=== PATIENT | female | born 1950 | race Caucasian/White ===

== ENCOUNTER 2017-01-25 11:21 | Emergency (ER) | payer OTHER ==
[~2017-01-25] VITALS: Ht 165.1 cm; Wt 78.5 kg
[~2017-01-25 11:21] MED LIST: ASPIRIN EC81 M1 PO; CALCIUM 600 +1 EAC1 PO; CLARITIN10 M2 PO; CRANBERRY400 MG PO; FISHOIL PO; GLUCOPHAGE XR500 MG PO; HAIR, SKIN & N1 EAC1 PO; IRON PO; L-LYSINE1000 M1 PO; L-LYSINE500 M1 PO; LEXAPRO 10 MG T10 MG PO; LIPITOR40 MG PO; LUTEIN10 MG PO; NORCO 5-325 TA1 EACH PO; PERCOCET PO; PREMARIN VAG; PREMARIN0.3 MG PO; THERA-M CAPLET1 EACH PO; TRICOR145 MG PO; TRIPLE FLEX PO; VERAPAMIL ER120 MG PO; VITAMIN A10000 UNI3 PO; VITAMIN B-12500 MCG PO; VITAMIN C + RO500 MG PO; VITAMIN D1000 UNI1 PO; VITAMIN E400 UNIT PO; ZINC CHELATE50 MG PO
[2017-01-25] MEDS ORDERED: RESTASIS1 EACH OPHTHALMIC (11:36)
[2017-01-25] MEDS ORDERED: DOXYCYCLINE 10100 MG PO (11:37)
[2017-01-25] MEDS ORDERED: COZAAR 50 MG TA50 M2 PO (11:37)
[2017-01-25] MEDS ORDERED: OMEPRAZOLE 20 M20 M1 PO (11:38)
[2017-01-25] MEDS ORDERED: IRON325 PO (11:39)
[2017-01-25] MEDS ORDERED: TRIPLE FLEX CA1 EACH PO (11:39)
[2017-01-25] MEDS ORDERED: ZYRTEC10 M5 PO (11:40)
[2017-01-25] MEDS ORDERED: BENADRYL25 MG PO (11:41)
[2017-01-25] MEDS ORDERED: KLOR-CON 1010 MEQ PO (11:42)
[2017-01-25] MEDS ORDERED: TURMERIC500 M2 PO (11:42)
[2017-01-25 12:09] LABS: ABSOLUTE NEUTROPHILS 8.6 thou/uL (1.4-8.2); BASOPHILS 0.7 % (0.0-2.0); EOSINOPHILS 0.9 % (0.0-3.0); HEMATOCRIT 40.5 % (37.0-47.0); HEMOGLOBIN 13.8 gm/dL (12.0-15.0); LYMPHOCYTES 13.4 % (24.0-44.0); MCH 29.8 pg (26.0-34.0); MCHC 34.1 g/dL (28.0-37.0); MCV 87.3 fL (80.0-100.0); PLATELET COUNT 293 thou/uL (150-400); RBC 4.64 mil/uL (4.20-5.00); RDW 13.8 % (10.5-14.5); WBC 11.6 thou/uL (4.0-11.0)
[2017-01-25 12:10] LABS: MANUAL DIFF NO
[2017-01-25 12:15] LABS: CALCIUM 9.7 mg/dL (8.5-10.1); CREATININE 0.9 mg/dL (0.6-1.0); POTASSIUM 4.3 mmol/L (3.5-5.1)
[2017-01-25 12:21] LABS: ALBUMIN 4.2 g/dL (3.4-5.0); TOTAL PROTEIN 7.5 g/dL (6.4-8.2)
[2017-01-25 13:03] LABS: URINE BILIRUBIN NEGATIVE (Negative); URINE BLOOD 2+ (Negative); URINE COLOR YELLOW; URINE GLUCOSE-RANDOM* NEGATIVE (Negative); URINE KETONES NEGATIVE (Negative); URINE PROTEIN (DIPSTICK) TRACE (Negative); URINE SPECIFIC GRAVITY <= 1.005 (1.003-1.035); URINE UROBILINOGEN 0.2 E.U./dl (0.2-1.0)
[2017-01-25 13:04] LABS: URINE LEUKOCYTES-REFLEX 3+ (Negative)
[2017-01-25 13:06] LABS: SQUAMOUS 0-3 Few /LPF (0-3); URINE WBC-REFLEX >25 Many /HPF (0-5)
[2017-01-25 13:07] LABS: CASTS None Seen /LPF (None Seen); CRYSTALS None Seen /LPF (None Seen); URINE RBC 3-10 Few /HPF (0-2)
[2017-01-25] MEDS ORDERED: KEFLEX500 MG PO (13:18)
[2017-01-25 14:01] VITALS: BP 144/63
== END 2017-01-25 14:02 | disposition home or self-care (01) ==
LOC: ER 11:21
PROVIDERS: Physician Assistant
DX: N39.0 Urinary tract infection, site not specified (principal); Z90.710 Acquired absence of both cervix and uterus; Z98.890 Other specified postprocedural states; Z88.1 Allergy status to other antibiotic agents; Z88.2 Allergy status to sulfonamides; Z91.018 Allergy to other foods; Z88.8 Allergy status to other drugs, medicaments and biological substances

== ENCOUNTER → 2017-04-07 | Outpatient (CLI) | payer OTHER ==
[~2017-04-07] MED LIST changes: +AUGMENTIN 875-1 EACH PO; +BENADRYL25 MG PO; +COZAAR 50 MG TA50 M2 PO; +DOXYCYCLINE 10100 MG PO; +IRON325 PO; +KEFLEX500 MG PO; +KLOR-CON 1010 MEQ PO; +OMEPRAZOLE 20 M20 M1 PO; +RESTASIS1 EACH OPHTHALMIC; +TRIPLE FLEX CA1 EACH PO; +TURMERIC500 M2 PO; +ZYRTEC10 M5 PO
== END ==
LOC: RAD 02:01
DX: Z12.31 Encounter for screening mammogram for malignant neoplasm of breast (principal)

== ENCOUNTER → 2017-08-28 | Outpatient (CLI) | payer OTHER | LOC: MRI 06:18 | DX: G93.0 Cerebral cysts (principal) ==

== ENCOUNTER → 2018-04-08 | Outpatient (CLI) | payer OTHER | LOC: RAD 01:13 | DX: Z12.31 Encounter for screening mammogram for malignant neoplasm of breast (principal) ==

== ENCOUNTER 2018-05-19 09:21 | Emergency (ER) | payer OTHER ==
[~2018-05-19] VITALS: Ht 165.1 cm; Wt 78.5 kg
[2018-05-19 09:55] LABS: ABSOLUTE NEUTROPHILS 7.6 thou/uL (1.4-8.2); BASOPHILS 0.6 % (0.0-2.0); EOSINOPHILS 1.9 % (0.0-3.0); HEMATOCRIT 41.2 % (37.0-47.0); HEMOGLOBIN 13.9 gm/dL (12.0-15.0); LYMPHOCYTES 11.4 % (24.0-44.0); MCH 29.3 pg (26.0-34.0); MCHC 33.7 g/dL (28.0-37.0); MCV 86.8 fL (80.0-100.0); MONOCYTES 9.2 % (1.0-8.0); PLATELET COUNT 271 thou/uL (150-400); POLYS 76.9 % (36.0-66.0); RBC 4.75 mil/uL (4.20-5.00); RDW 13.4 % (10.5-14.5); WBC 9.9 thou/uL (4.0-11.0)
[2018-05-19 09:57] LABS: ANION GAP 10 mmol/L (7-16); BUN 17 mg/dL (7-18); CALCIUM 9.7 mg/dL (8.5-10.1); CHLORIDE 101 mmol/L (98-107); CO2 26 mmol/L (21-32); GLUCOSE 164 mg/dL (74-106); POTASSIUM 4.1 mmol/L (3.5-5.1); SODIUM 137 mmol/L (136-145)
[2018-05-19 10:06] LABS: TROPONIN-I <0.06 ng/mL (<0.06)
[2018-05-19] MEDS ORDERED: MOBIC7.5 MG PO (10:41)
[2018-05-19] MEDS ORDERED: NORFLEX100 MG PO (10:41)
[2018-05-19] MEDS ORDERED: TRAMADOL 50 MG50 MG PO (10:41)
[2018-05-19 10:52] VITALS: BP 124/52
--- NOTE | 2018-05-19 13:57 | EKG ---
[address] [place] [place] [address] ELECTROCARDIOGRAM REPORT Name: ELIDIA GANDHI Room #: DEP [facility] [id number] Admission: 05/19/18 Attend Phys: Discharge: 05/19/18 Date of : 52 Report #: [id number] THIS REPORT FOR: //name// [facility] ED Test Date: 2018-05-19 Test Time: 09:34:58 Pat Name: ELIDIA GANDHI Department: Room: Gender: F Resistor Coater: KF : 1950 Requested By: Nicolas Johnston Order Number: [id number] MD: Chilo Gaspar Measurements Intervals [place] Rate: 77 P: 55 MD: 177 QRS: 31 QRSD: 96 T: 42 QT: 373 QTc: 423 Interpretive Statements Sinus rhythm Compared to ECG 06/17/2011 06:33:46 No significant changes Electronically Signed On 05-19-2018 13:57:23 IT SYSTEMS ANALYST by Chilo Gaspar [email or web address] <ELECTRONICALLY SIGNED> By: Chilo Gaspar MD 05/19/18 1357 0934 0934 Chilo Gaspar MD /NORMA
== END 2018-05-19 10:54 | disposition home or self-care (01) ==
LOC: ER 09:21
PROVIDERS: Emergency Medicine
DX: S29.011A Strain of muscle and tendon of front wall of thorax, initial encounter (principal); E78.00 Pure hypercholesterolemia, unspecified; I10 Essential (primary) hypertension; Z88.1 Allergy status to other antibiotic agents; Z88.8 Allergy status to other drugs, medicaments and biological substances; Z88.2 Allergy status to sulfonamides; Z91.018 Allergy to other foods; Z98.890 Other specified postprocedural states; Z90.710 Acquired absence of both cervix and uterus; X58.XXXA Exposure to other specified factors, initial encounter; Y93.H1 Activity, digging, shoveling and raking; Y92.89 Other specified places as the place of occurrence of the external cause; Y99.8 Other external cause status

== ENCOUNTER → 2018-08-12 | Outpatient (CLI) | payer OTHER ==
[~2018-08-12] MED LIST changes: +MOBIC7.5 MG PO; +NORFLEX100 MG PO; +TRAMADOL 50 MG50 MG PO
== END ==
LOC: MRI 09:24
DX: G93.0 Cerebral cysts (principal); E11.9 Type 2 diabetes mellitus without complications; I10 Essential (primary) hypertension

== ENCOUNTER → 2019-04-14 | Outpatient (CLI) | payer OTHER | LOC: RAD 08:58 | DX: Z12.31 Encounter for screening mammogram for malignant neoplasm of breast (principal) ==

== ENCOUNTER → 2020-05-15 | Outpatient (CLI) | payer OTHER | LOC: BC 04-17 11:07 | PROVIDERS: ATTEND Internal Medicine | DX: Z12.31 Encounter for screening mammogram for malignant neoplasm of breast (principal) ==

== ENCOUNTER 2020-06-04 17:36 | Inpatient (IN) | payer OTHER ==
[~2020-06-04] VITALS: Ht 165.1 cm; Wt 73.9 kg
[2020-06-04 17:45] VITALS: BP 145/53
[2020-06-04] MEDS ORDERED: LEXAPRO20 MG PO (18:28)
[2020-06-04] MEDS ORDERED: PREMARIN30 GM TOP (18:30)
[2020-06-04] MEDS ORDERED: ZOFRAN 4 MG ORAL4 MG PO (18:31)
[2020-06-04] MEDS ORDERED: MELATONIN3 M1 PO (18:32)
[2020-06-04] MEDS ORDERED: DICLOFENAC SODI75 MG PO (18:32)
[2020-06-04] MEDS ORDERED: ELLURA200 MG PO (18:33)
[2020-06-04] MEDS ORDERED: VITAMIN E450 M1 PO (18:34)
[2020-06-04] MEDS ORDERED: CALCIUM CITRAT200 MG PO (18:34)
[2020-06-04] MEDS ORDERED: TRIPLE FLEX PO (18:36)
[2020-06-04] MEDS ORDERED: L-LYSINE1000 MG PO (18:36)
[2020-06-04] MEDS ORDERED: ENBRACE HR SOF1 EACH PO (18:37)
[2020-06-04] MEDS ORDERED: IRON18 M1 PO (18:38)
[2020-06-04] MEDS ORDERED: ZYRTEC10 MG PO (18:39)
[2020-06-04 18:40] LABS: ABSOLUTE NEUTROPHILS 9.1 thou/uL (1.4-8.2); BASOPHILS 0.4 % (0.0-2.0); HEMATOCRIT 29.8 % (37.0-47.0); HEMOGLOBIN 9.8 gm/dL (12.0-15.0); LYMPHOCYTES 5.7 % (24.0-44.0); MCH 28.2 pg (26.0-34.0); MCHC 32.8 g/dL (28.0-37.0); PLATELET COUNT 331 thou/uL (150-400); POLYS 81.9 % (36.0-66.0); RBC 3.47 mil/uL (4.20-5.00); RDW 15.3 % (10.5-14.5); WBC 11.2 thou/uL (4.0-11.0)
[2020-06-04] MEDS ORDERED: [UNRECOGNIZED DRUG - OTHER] PO (18:40)
[2020-06-04] MEDS ORDERED: BENADRYL25 MG PO (18:41)
[2020-06-04] MEDS ORDERED: LUTEIN-ZEAXANT1 EAC1 PO (18:41)
[2020-06-04 18:46] LABS: CALCIUM 9.9 mg/dL (8.5-10.1); POTASSIUM 5.2 mmol/L (3.5-5.1)
[2020-06-04 18:49] LABS: PROTIME 10.2 Seconds (9.3-11.4)
[2020-06-04 19:00] LABS: ALBUMIN 2.7 g/dL (3.4-5.0); TOTAL PROTEIN 8.1 g/dL (6.4-8.2)
[2020-06-04 20:00] VITALS: BP 114/46
[2020-06-04 20:29] VITALS: BP 114/48
[2020-06-04] MEDS ORDERED: POTASSIUM GLUCO99 M2 PO (23:17)
[2020-06-05 00:06] VITALS: BP 133/61
--- NOTE | 2020-06-05 03:11 | NUR ---
PT NEW ADMIT, FROM ED FOR VASCULITIS AND SHERLY. PT ALERT AND ORIENTED. NO SOB, CHEST PAIN, OR NAUSEA AND VOMITING . ASSIST X 1 , AMBULATORY TO THE BATHROOM. PT C/O PAIN IN THE LOWER EXTREMITIES, AND SWELLING WITH REDNESS. REPORTS TINGLING IN THE LE. PT ALSO C/O DIARRHEA X 3 DAYS. WILL CONTINUE TO MONITOR FOR ANY FURTHER EPISODES OF DIARRHEA. NO FURTHER C/O OVERNIGHT. WILL CONTINUE TO MONITOR.
[2020-06-05 03:38] LABS: HEMATOCRIT 28.5 % (37.0-47.0); HEMOGLOBIN 9.5 gm/dL (12.0-15.0); MCH 28.8 pg (26.0-34.0); MCHC 33.5 g/dL (28.0-37.0); RBC 3.31 mil/uL (4.20-5.00); RDW 15.5 % (10.5-14.5); WBC 9.4 thou/uL (4.0-11.0)
[2020-06-05 03:46] VITALS: BP 124/68
[2020-06-05 03:56] LABS: POTASSIUM 5.7 mmol/L (3.5-5.1); URIC ACID* 6.5 mg/dL (2.6-6.0)
[2020-06-05 07:27] VITALS: BP 143/80
--- NOTE | 2020-06-05 07:45 | EKG ---
[place] [address] [employer] [place] [address] ELECTROCARDIOGRAM REPORT Name: ELIDIA GANDHI Room #: 350-P ADM IN M.R.#: [id number] Admission: 06/04/20 Attend Phys: Khoa Leahy Discharge: Date of : 52 Report #: [id number] [facility] ED Test Date: 2020-06-04 Test Time: 18:11:13 Pat Name: ELIDIA GANDHI Department: Room: 350 Gender: F Corporate Relations Director: ERNESTO : 1950 Requested By: Kris Ahn Order Number: [id number] MD: Jean Marie Willard Measurements Intervals [place] Rate: 88 P: 48 IA: 154 QRS: 32 QRSD: 97 T: 26 QT: 350 QTc: 424 Interpretive Statements Sinus rhythm Normal tracing Compared to ECG 05/19/2018 09:34:58 No significant changes Electronically Signed On 06-05-2020 7:45:30 TRANSIT VEHICLE INSPECTOR by Jean Marie Willard [email or web address] <ELECTRONICALLY SIGNED> By: Jean Marie Willard MD, [facility] 06/05/20 0745 181 1811 Jean Marie Willard MD, FACC /EPI
--- NOTE | 2020-06-05 10:39 | NUR ---
INITIAL ASSESSMENT: SW reviewed chart and spoke with nursing and attending physician. Pt was admitted from home due to vasculitis. Pt placed in Enhanced Isolation to r/o COVID-19. Test was negative. Awaiting ID clearance to remove isolation precautions. Pt is afebrile and on 3L of O2. Pt is on IV abx/IV steroids. SW placed call to pt's room. No answer. SW left voice message for pt on listed contact number ([phone]). Per chart, pt is alert/orientated x 4 and lives at home. Pt has health insurance. Pt's PCP is Dr. Norma Rivas. Will continue to follow to assist as needed with discharge planning.
--- NOTE | 2020-06-05 14:46 | NUR ---
THREE ATTEMPTS MADE TO CALL [facility] VOICE MAIL LEFT. WILL KEEP ATTEMPTING..
[2020-06-05 15:39] VITALS: BP 133/77
[2020-06-05 17:55] LABS: URINE BILIRUBIN NEGATIVE (Negative); URINE BLOOD NEGATIVE (Negative); URINE CLARITY CLEAR; URINE COLOR YELLOW; URINE GLUCOSE-RANDOM* 3+ (Negative); URINE KETONES NEGATIVE (Negative); URINE LEUKOCYTES NEGATIVE (Negative); URINE NITRITE NEGATIVE (Negative); URINE PROTEIN (DIPSTICK) TRACE (Negative); URINE SPECIFIC GRAVITY 1.015 (1.005-1.035); URINE UROBILINOGEN 0.2 E.U./dl (0.2-1.0)
--- NOTE | 2020-06-05 19:06 | NUR ---
ASSUMED CARE OF PT AT 0700. PT AOX4 IN NO ACUTE DISTRESS. VASCULITIS NOTED TO BLE. C/O GENERALIZED JOINT PAINT - RELIEF WITH TYLENOL. UP W/ SBA. IV ABX INFUSING PER ORDER. CDIF POSITIVE. COVID NEGATIVE. SPECIAL PRECCAUTIONS IN PLACE. BIOPSIES OBTAINED BY DERMATOLOGY SUBMITTED TO LAB. RESULTS PENDING. SHERRON.
[2020-06-05 19:34] VITALS: BP 137/69
[2020-06-06 03:46] VITALS: BP 143/70
[2020-06-06 04:44] VITALS: BP 151/76
[2020-06-06 05:52] VITALS: BP 158/76
--- NOTE | 2020-06-06 06:13 | NUR ---
PT VSS OVERNIGHT AND NO FEVER. PT TOOK SHOWER THIS AM. CDIFF POSITIVE, ISOLATION PRECAUTIONS IN PLACE. RECEIVED INSTRUCTIONS TO MOVE PT OFF COVID UNIT TO 4W. REPORT GIVEN TO RN AND PT TRANSFERRED. NO COMPLAINTS FROM PT.
--- NOTE | 2020-06-06 06:31 | NUR ---
PT TRANSFERED FROM 3 AT 0550 .PT IS A/O X4.PT IS UP WITH STANDBY ASSIST TO THE BATHROOM.PT HAS BLLE EDEMA AND VITAL SIGNS TAKEN AND PT MADE COMFORTABLE IN BED.PT APPEARED TO BE IN NO ACUTE DISTRESS.PT IS ACCUCHECK ACHS.ALL MORNING MEDICATION ADMINISTERED AT 3W.WILL CONTINUE TO MONITOR PER POC
[2020-06-06 07:38] VITALS: BP 158/51
--- NOTE | 2020-06-06 12:05 | NUR ---
ASSUMED PT CARE THIS AM. PT VSS, A&OX4. PT HAS NO COMPLAINTS OF PAIN. EDEMA NOTED IN BLE WELL AND BILATERAL FEET, WITH ERYTHEMA. ON 3L NC. PT IS CONTINENT, AMBULATORY TO THE BATHROOM WHEN NEEDED. PRECAUTIONS IN PLACE FOR C DIFF. FALL PRECAUTIONS IN PLACE, CALLING APPROPRIATELY WHEN NEEDED.
[2020-06-06 13:07] LABS: COMPLEMENT-C3 224 mg/dL (82-167); COMPLEMENT-C4 38 mg/dL (12-38)
--- NOTE | 2020-06-06 16:02 | NUR ---
PT CONTINUES ON IV VANC. PT WAS SEEN BY DERMATOLOGY AND A BIOPSY WAS TAKEN. PT CONTINUES ON 3L O3. CM TO FOLLOW INDICATED WITH DC PLANNING.
[2020-06-06 19:58] VITALS: BP 142/58
[2020-06-06 22:06] LABS: HEPATITIS B SURFACE AG Negative (Negative); HEPATITIS C VIRUS AB <0.1 (0.0-0.9); HIV ANTIBODY Non Reactive (Non Reactive)
--- NOTE | 2020-06-07 02:24 | NUR ---
ASSUMED CARE OF PT AT 1900. PT IS A/O X4 AND IS UP WITH SBA TO THE BR. C/O PAIN IN LE. PRN PAIN MEDICATION GIVEN DIRECTED. REMAINS ON 2 LITERS NC. 1 EPISODE OF LOOSE STOOL.FALL PRECAUTIONS ARE IMPLEMENTED, CALL LIGHT IS WITHIN REACH. WILL CONTINUE TO MONITOR.
[2020-06-07 07:27] VITALS: BP 153/78
[2020-06-07 10:07] LABS: ANTI-DNA SCREEN <1 IU/mL (0-9); ANTI-RNP <0.2 AI (0.0-0.9)
--- NOTE | 2020-06-07 11:50 | NUR ---
ASSUMED PT CARE THIS AM. PT A&OX4, VSS. CALLS APPROPRIATELY WHEN NEEDED. AMBULATORY TO THE BATHROOM. BLE EDEMA BETTER TODAY, ENCOURAGED TO ELEVATE FEET WHEN SITTING/LAYING. PAIN NOTED THIS AM, RESPONDED WELL TO PAIN MEDS GIVEN PER EMAR. HYDRATION ENCOURAGED. PT ON 2L NC. IV PATENT. MEDS TAKEN WELL THIS AM.
--- NOTE | 2020-06-07 15:02 | NUR ---
CARE TEAM INDICATED THAT PT IS PROGRESSING TOWARD GOAL OF DISCHARGE. PT CONTINUES ON IV VANC. PT STILL ON 2L O2 WITH NO O2 ALL SOURCE ANALYST. CM FOLLOWING REGARDING POSSIBLE DC NEEDS UPON DC.
[2020-06-07 15:08] LABS: GLOBULIN TOTAL 3.8 g/dL (2.2-3.9); M-SPIKE Not Observed g/dL (Not Observed)
[2020-06-07 20:26] VITALS: BP 159/65
--- NOTE | 2020-06-08 06:04 | NUR ---
ASSUMED PT'S CARE THIS PM SHIFT. ALERT AND ORIENTED. PT WAS COOPERATIVE WITH CARE. TOOK MEDS PER EMAR. PRN PAIM MED GIVEN THIS SHIFT. CDIFF ISOLATION REMAINS IN PLACE. PT CALLS OUT APPROPRIATELY FOR ASSSISTANCE. PT HAS STEADY GAIT. MORNING MEDS GIVEN WITH YOHANNES CYR PER PT'S REQUEST. VOICED TAKING MEDS WITHOUT FOOD MAKES HER NAUSEATED. CALL LIGHT WITHIN REACH. PT VOICED ANTICIPATING DC TODAY. WILL CONTINUE TO MONITOR.
[2020-06-08 08:18] VITALS: BP 151/66
[2020-06-08] MEDS ORDERED: VANCOMYCIN HCL125 MG PO (10:57)
[2020-06-08] MEDS ORDERED: PREDNISONE 20 M20 M1 PO (10:58)
[2020-06-08] MEDS ORDERED: FREESTYLE LIBR1 EAC2 MISCELL (11:08)
[2020-06-08] MEDS ORDERED: GLYBURIDE 5 MG T5 M1 PO (11:08)
[2020-06-08] MEDS ORDERED: FREESTYLE LIBR1 EAC3 MISCELL (11:08)
[2020-06-08 13:12] VITALS: BP 151/66
--- NOTE | 2020-06-08 15:10 | NUR ---
CARE TEAM INDICATED THAT PT IS MEDICALLY STABLE TO DC HOME THIS DAY. CM SPOKE WITH PT AND SHE IS RECEPTIVE TO HH SERVICES. SHE INDICATED NO PREFERENCE FOR PROVIDERS. REFERRAL SENT TO [facility]. THEY ARE ABLE TO ACCEPT PT FOR SERVICES UPON DC. PT IS AWARE. PHYSICIAN ORDERED FREESTYLE AMILCAR GLUCOSE MONITOR. CM SPOKE WITH PT ABOUT IT AND SHE WAS AGREEABLE TO CM COMPLETEING PAPERWORK AND SUBMITTING IT TO INITIATE PROCESS. PT HAD GLUCOMETER AND TESTING SUPPLIES ALREADY AND KNOWS TO CONTINUE TO USE THOSE UNTIL APPROVED FOR [facility] FREESTYLE. PT HAS TRNASPORT HOME THIS DAY. NO OTHER CM INTERVENTION INDICATED. CASE CLOSED.
[2020-06-08 15:46] VITALS: BP 153/80
[2020-06-08 15:48] VITALS: BP 151/66
--- NOTE | 2020-06-08 18:39 | NUR ---
Assumed pt care, vs stable, blood glucose monitored medication given as per emar. POC followed with no signs or verbalizations of distress noted. DC instructions given to the pt, prescriptions sent tot pharmacy. IV removed pt is now dc.
[2020-06-09 01:07] LABS: GLYCOHEMOGLOBIN (HGB A1C) 7.7 % (4.8-5.6)
--- NOTE | 2020-06-09 10:56 | NUR ---
PT DISCHARGING TODAY TO HOME WITH [facility] ARZATE FAXED DC ORDERS/SUMMARY SPOKE WITH JR IN INTAKE HE RECEIVED ORDERS THEY WILL ARRANGE VISITS WITH PT.
--- NOTE | 2020-06-12 16:06 | PATH ---
[facility] [address] [place] [address] PATHOLOGY RPT PROCEDURE Name: ELIDIA GANDHI Room #: 459-P DIS IN M.R.#: [id number] Admission: 06/04/20 Date of : 52 Discharge: 06/08/20 Report #: [id number] Path Case #: [id number] [facility] Accession Number: [id number] . 01 Material submitted: . PART A: thigh - LEFT THIGH. Modifiers: left PART B: thigh - LEFT THIGH. Modifiers: left . 01 Clinical history: . R/O VASCULITIS VS OTHER INFLAMMATORY . 02 Diagnosis: A. Skin, left thigh, punch biopsy, H and E: - Lobular panniculitis, mixed cell type (see comment). . B. Skin, left thigh, punch biopsy, direct immunofluorescence: - An addendum report will be issued once the direct immunofluorescence report is received from the [facility]. (SAS:jairon; 06/09/2020) QTP 06/09/2020 1103 Local . 02 Comment: Specimen A was evaluated with multiple deeper levels as well as a number of special stains, all performed with an appropriate positive control, which yielded the following results: PAS fungus: Negative Von Kossa (calcium): Negative Alcian blue pH2.5: Focally increased subcutaneous mucin deposition CD34: Highlights blood vessels throughout the biopsy otherwise negative CD3: Scattered positive staining T-cell lymphocytes CD4: Positive greater than CD8 staining . Additional clinical history was obtained on June 09, 2020. The patient was evaluated for bilateral lower extremity rash after presenting for diarrhea. Five days prior to admission she had acute onset of pain in both feet associated with a red rash that involved both of her lower extremities. Some of the skin lesions were markedly tender. No fever, chills or sweats. The patient also noted stiffness and swelling in her hands and feet. The lesions are reported as stable and slowly going away according to the patient. On physical exam by the consulting sap fico architect, the patient from just above the knee distally has several dull red, non-blanchable macules ranging in size from 2 mm to 2 cm. There was positive pain to firm on palpation. The lower legs and feet were edematous with more of an ecchymotic appearance to the ankles, dorsal feet, and on to some toes. 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 . [address] [address] PATHOLOGY RPT PROCEDURE Name: OKSANAELIDIA E Room #: 459-P DIS IN M.R.#: [id number] Admission: 06/04/20 Date of : 52 Discharge: 06/08/20 Report #: [id number] Path Case #: [id number] Histologically despite extensive levels, there is no evidence of a vasculitis on the multiple sections examined. As mentioned, the CD34 immunostain highlights vessels throughout the biopsy which on H and E stained sections are normal. With the presence of a mixed inflammatory infiltrate within the lobules of the underlying subcutaneous fat, this may represent a lobular panniculitis possibly a neutrophilic lobular panniculitis such as erythema induratum versus a surrouding cellulitis. Correlation with tissue cultures is recommended if clinically indicated to rule out an infectious etiology. . With the presence of focal mucin within the lobules, a connective tissue disease is also a possibility although it is not favored due to the lack of associated plasma cells and the lack of significant mucin. Please correlate with the results of the direct immunofluorescence. . The immunohistochemical stains also do not favor an atypical lymphoproliferative infiltrate. . This case has been co-reviewed by a second board certified dermatopathologist, Dr. Wild, with consensus. . (SAS:[facility]; 06/09/2020) . 02 Addendum: . Special [place] [address], on case [id number], labeled with their number [id number], dated 06/12/2020. . CIB Cutaneous Direct Immunofluorescence Assay (IFA), Biopsy . Cutaneous Direct IFA, Biopsy . Interpretation A. Left thigh, Skin biopsy, Immunofluorescence: IgG: Negative IgM: Negative IgA: Negative C3: Negative Fibrinogen: Negative . IMPRESSION Negative study (see comment) . COMMENT There is no direct immunofluorescence evidence for a specific dermatosis. A final definitive diagnosis should be based on correlation of the direct [facility] [address] [place] [address] PATHOLOGY RPT PROCEDURE Name: ELIDIA GANDHI Room #: 459-P DIS IN M.R.#: [id number] Admission: 06/04/20 Date of : 52 Discharge: 06/08/20 Report #: [id number] Path Case #: [id number] immunofluorescence findings with the clinical presentation, histopathological findings on examination of sections from formalin-fixed, paraffin-embedded tissue and other diagnostic tests. . . . . Report electronically signed by Nisha Scott M.D. . Laboratory Notes This test was developed using an analyte specific reagent. Its performance characteristics were determined by [facility] in a manner consistent with CLIA requirements. This test has not been cleared or approved by the U.S. Food and Drug Administration. . . A complete copy of the report is on file. . [place] [address]. Technical services performed by [facility] [address] [place] [address], [facility] [address] [address]. . (SAS:amfamilia 06/12/2020) . AZJ/06/12/2020 Addendum Electronically Signed by Kerry Ochoa MD, Pathologist . 02 Electronically signed: . Kerry Ochoa MD, Pathologist NPI- [id number] . 01 Gross description: . A. The specimen is received in formalin, labeled "Elidia Gandhi, left thigh" and consists of a partial sher-pink skin punch measuring 0.4 x 0.3 x 0.5 cm which is submitted intact in A1. . B. Received in Benja's fixative, labeled "Elidia Gandhi, left thigh", is a partial punch biopsy of skin measuring 0.4 x 0.2 x 0.3 cm which is forwarded in its entirety for direct immunofluorescence studies. (SDY; 06/06/2020) SYU/SYU 06/06/2020 1621 Local . 02 Pathologist provided ICD-10: M79.3 . 02 CPT . [facility] [address] [place] [address] PATHOLOGY RPT PROCEDURE Name: ELIDIA GANDHI Room #: 459-P DIS IN M.R.#: [id number] Admission: 06/04/20 Date of : 52 Discharge: 06/08/20 Report #: [id number] Path Case #: [id number] Specimen Comment: A courtesy copy of this report has been sent to [phone] Specimen Comment: [id number] Specimen Comment: Report sent to / DR AWAD Performed at: 01 [facility] [address], [place], [place] [id number] MD Jaylon Ba MD Phone: [phone] Performed at: 02 [facility] [address] [place] [id number] MD Kerry Ochoa MD Phone: [phone]
== END 2020-06-08 18:55 | disposition home health service (06) | DRG 871 ==
LOC: ER 17:36 → 3W 19:49 → EROBS 19:49 → 4W 19:49 → 3W 20:26 → 4W 06-06 06:16
PROVIDERS: Emergency Medicine; Nurse Practitioner Family; Specialist; ADMIT Hospitalist; ATTEND Hospitalist
PROC: 0HBJXZX Excision of Left Upper Leg Skin, External Approach, Diagnostic (ICD-10-PCS; principal; 2020-06-05)
DX: A41.9 Sepsis, unspecified organism (principal); N17.0 Acute kidney failure with tubular necrosis; E43 Unspecified severe protein-calorie malnutrition; A04.72 Enterocolitis due to Clostridium difficile, not specified as recurrent; L03.116 Cellulitis of left lower limb; L03.115 Cellulitis of right lower limb; L03.90 Cellulitis, unspecified; I77.6 Arteritis, unspecified; E78.5 Hyperlipidemia, unspecified; K21.9 Gastro-esophageal reflux disease without esophagitis; F32.9 Major depressive disorder, single episode, unspecified; I10 Essential (primary) hypertension; D64.9 Anemia, unspecified; E66.9 Obesity, unspecified; K75.9 Inflammatory liver disease, unspecified; E11.9 Type 2 diabetes mellitus without complications; M85.80 Other specified disorders of bone density and structure, unspecified site; Z20.822 Contact with and (suspected) exposure to COVID-19; Z68.27 Body mass index [BMI] 27.0-27.9, adult; Z90.710 Acquired absence of both cervix and uterus; Z88.2 Allergy status to sulfonamides; Z88.8 Allergy status to other drugs, medicaments and biological substances; Z88.1 Allergy status to other antibiotic agents; Z91.02 Food additives allergy status
CPT/HCPCS: 10047; 10779

== ENCOUNTER → 2021-05-23 | Outpatient (CLI) | payer OTHER ==
[~2021-05-23] MED LIST changes: +CALCIUM CITRAT200 MG PO; +DICLOFENAC SODI75 MG PO; +ELLURA200 MG PO; +ENBRACE HR SOF1 EACH PO; +FREESTYLE LIBR1 EAC2 MISCELL; +FREESTYLE LIBR1 EAC3 MISCELL; +GLYBURIDE 5 MG T5 M1 PO; +IRON18 M1 PO; +L-LYSINE1000 MG PO; +LEXAPRO20 MG PO; +LUTEIN-ZEAXANT1 EAC1 PO; +MELATONIN3 M1 PO; +POTASSIUM GLUCO99 M2 PO; +PREDNISONE 20 M20 M1 PO; +PREMARIN30 GM TOP; +VANCOMYCIN HCL125 MG PO; +VITAMIN E450 M1 PO; +ZOFRAN 4 MG ORAL4 MG PO; +ZYRTEC10 MG PO; +[UNRECOGNIZED DRUG - OTHER] PO
== END ==
LOC: BC 05-16 15:21
PROVIDERS: ATTEND Internal Medicine
DX: Z12.31 Encounter for screening mammogram for malignant neoplasm of breast (principal); N64.89 Other specified disorders of breast